=== PATIENT | male | born 1955 | race Caucasian/White ===

== ENCOUNTER → 2016-07-01 | Outpatient (CLI) | payer MEDICARE ==
[~2016-07-01] MED LIST: ASPIRIN (CHILDR81 MG PO; AYR SALINE NA14.1 GM NOSE; CELEBREX200 MG PO; COLACE100 MG PO; CORDARONE,PACE200 MG PO; EPIPEN0.3 MG IM; FISH OIL1000 MG PO; FLEXERIL10 MG PO; ISOSORBIDE MONO30 MG PO; LIPITOR40 MG PO; LISINOPRIL-HCT1 EACH PO; LOPRESSOR25 MG PO; NEURONTIN100 MG PO; NITROSTAT0.4 MG SL; NORCO 5-325 TA1 EACH PO; PRINIVIL (ZESTRI5 MG PO; THERA-VITE W/ B1 TAB PO
[2016-07-01 11:17] LABS: ALBUMIN 3.9 gm/dL (3.5-5.0); TOTAL PROTEIN 7.5 g/dL (6.0-8.4)
== END | disposition disaster alternative care site (69) ==
LOC: LNHI 10:58
PROVIDERS: Internal Medicine Interventional Cardiology
DX: I25.10 Atherosclerotic heart disease of native coronary artery without angina pectoris (principal); E78.5 Hyperlipidemia, unspecified